=== PATIENT | male | born 1955 | race Caucasian/White ===

== ENCOUNTER 2018-03-29 08:54 | Inpatient (IN) | payer MEDICARE ==
[~2018-03-29] VITALS: Ht 185.4 cm; Wt 118.8 kg
[2018-03-29] MEDS ORDERED: normal saline 1000ML IV soln IVB ONE (09:30)
[2018-03-29 09:55] LABS: ALANINE AMINOTRANSFERASE 16 U/L (12-78); ALBUMIN 3.1 G/DL (3.4-5.0); ALBUMIN/GLOBULIN RATIO 0.7 (1.1-1.5); ALKALINE PHOSPHATASE 331 IU/L (46-116); ANION GAP 21 (8-16); ASPARTATE AMINO TRANSFERASE 21 U/L (10-37); BILIRUBIN,TOTAL 1.4 MG/DL (0.1-1.0); BLOOD UREA NITROGEN 75 MG/DL (7-18); BUN/CREATININE RATIO 6.3 (5.4-32.0); CALCIUM 8.7 MG/DL (8.5-10.1); CHLORIDE 99 MMOL/L (99-107); CREATININE 11.88 MG/DL (0.60-1.10); GLUCOSE 111 MG/DL (70-104); SODIUM 140 MMOL/L (135-145); TOTAL CARBON DIOXIDE 20.5 MMOL/L (24-32); TOTAL PROTEIN 7.6 G/DL (6.4-8.2); eGFR 4 ML/MIN
[2018-03-29 09:57] LABS: BASOPHILS % (AUTO) 0.5 % (0-1); EOSINOPHILS # (AUTO) 0.2 X10'3 (0-0.9); EOSINOPHILS % (AUTO) 2.5 % (0-6); HEMATOCRIT 33.6 % (42.0-52.0); HEMOGLOBIN 11.2 g/dl (14.0-17.9); LYMPHOCYTES # (AUTO) 0.9 X10'3 (1.1-4.8); LYMPHOCYTES % (AUTO) 10.5 % (21-51); MEAN CORPUSCULAR HGB CONC 33.3 % (33.0-36.5); MEAN CORPUSCULAR VOLUME 81.1 FL (78-98); MEAN PLATELET VOLUME 7.1 FL (7.4-10.4); MONOCYTES # (AUTO) 1.1 X10'3 (0-0.9); MONOCYTES % (AUTO) 12.9 % (2-12); NEUTROPHILS # (AUTO) 6.2 X10'3 (1.8-7.7); NEUTROPHILS % (AUTO) 73.6 % (42-75); PLATELET COUNT 223 X10'3 (140-440); RED BLOOD COUNT 4.14 X10'6 (4.70-6.10); RED CELL DISTRIBUTION WIDTH 15.4 % (11.5-14.5); WHITE BLOOD COUNT 8.4 X10'3 (4.5-11.0)
[2018-03-29] MEDS: diatr meglu/diatrizoate 30ml oral sol.-(3 dose) bottle PO SCH ×3 (10:01→12:07)
[2018-03-29 10:03] LABS: AMYLASE 61 U/L (25-115); LIPASE 106 U/L (73-393)
[2018-03-29 10:07] LABS: INR 1.3 INR; PARTIAL THROMBOPLASTIN TIME 30 SECONDS (22-32)
[2018-03-29] MEDS ORDERED: iohexol 300mg/ml 100ml inj. ONE (10:19)
[2018-03-29] MEDS ORDERED: aspirin 81mg tab.chew PO ONE (10:25)
[2018-03-29] MEDS ORDERED: ondansetron/PF 4mg/2ml inj IV PRN (16:20)
[2018-03-29] MEDS ORDERED: morphine 4 MG/ML inj SYRINge IV PRN (16:20)
[2018-03-29] MEDS ORDERED: acetaminophen 325mg tablet PO PRN ×2 (16:20)
[2018-03-29] MEDS ORDERED: potassium Cl 20 mEq SR tablet PO PRN ×2 (16:20)
[2018-03-29] MEDS: normal saline 1000ml 1,000 ML IV SCH (16:47)
[2018-03-29] MEDS: K, MAG and/or Phos replacement - Verify level? MC SCH (16:47)
[2018-03-29] MEDS: pantoprazole 40 MG vial IV SCH (17:40)
[2018-03-29 19:13] VITALS: BP 162/93
[2018-03-29 20:00] VITALS: BP 155/98
[2018-03-29] MEDS: docusate sod 100mg capsule PO SCH (20:00)
[2018-03-29 21:00] VITALS: BP 143/76
[2018-03-29] MEDS: sennosides/docusate sodium tablet PO SCH (21:00)
[2018-03-29] MEDS: sodium bicarbonate (8.4%) inj. 150 MEQ in dextrose 5%-water 1,000 ML IV SCH (21:48)
[2018-03-29] MEDS: heparin, porcine 5000 units/ml vial SQ SCH (21:59)
[2018-03-29 22:00] VITALS: BP 145/89
[2018-03-29 23:00] VITALS: BP 139/76
[2018-03-30] VITALS (19 sets, daily range): BP systolic 113–164; BP diastolic 68–92
[2018-03-30] MEDS: normal saline 1000ml 1,000 ML IV SCH ×2 (05:40→08:47)
[2018-03-30 05:57] LABS: BASOPHILS % (AUTO) 0.5 % (0-1); EOSINOPHILS # (AUTO) 0.3 X10'3 (0-0.9); EOSINOPHILS % (AUTO) 3.9 % (0-6); HEMATOCRIT 29.8 % (42.0-52.0); HEMOGLOBIN 10.1 g/dl (14.0-17.9); LYMPHOCYTES # (AUTO) 0.8 X10'3 (1.1-4.8); LYMPHOCYTES % (AUTO) 12.6 % (21-51); MEAN CORPUSCULAR HEMOGLOBIN 26.9 PG (27.0-31.0); MEAN CORPUSCULAR HGB CONC 33.7 % (33.0-36.5); MEAN CORPUSCULAR VOLUME 79.8 FL (78-98); MONOCYTES % (AUTO) 14.5 % (2-12); NEUTROPHILS # (AUTO) 4.6 X10'3 (1.8-7.7); NEUTROPHILS % (AUTO) 68.5 % (42-75); PLATELET COUNT 205 X10'3 (140-440); RED BLOOD COUNT 3.74 X10'6 (4.70-6.10); RED CELL DISTRIBUTION WIDTH 15.2 % (11.5-14.5); WHITE BLOOD COUNT 6.7 X10'3 (4.5-11.0)
[2018-03-30 06:09] LABS: INR 1.3 INR; PARTIAL THROMBOPLASTIN TIME 32 SECONDS (22-32); PROTHROMBIN TIME 13.4 SECONDS (9.0-12.0)
[2018-03-30 06:34] LABS: ALANINE AMINOTRANSFERASE 17 U/L (12-78); ALBUMIN 2.5 G/DL (3.4-5.0); ALBUMIN/GLOBULIN RATIO 0.6 (1.1-1.5); ALKALINE PHOSPHATASE 245 IU/L (46-116); ANION GAP 10 (8-16); ASPARTATE AMINO TRANSFERASE 20 U/L (10-37); BILIRUBIN,TOTAL 0.6 MG/DL (0.1-1.0); BLOOD UREA NITROGEN 31 MG/DL (7-18); BUN/CREATININE RATIO 13.1 (5.4-32.0); CALCIUM 8.3 MG/DL (8.5-10.1); CHLORIDE 107 MMOL/L (99-107); CREATININE 2.36 MG/DL (0.60-1.10); GLUCOSE 104 MG/DL (70-104); MAGNESIUM 2.4 MG/DL (1.5-2.4); PHOSPHORUS 2.4 MG/DL (2.3-4.5); POTASSIUM 3.8 MMOL/L (3.5-5.1); SODIUM 144 MMOL/L (135-145); TOTAL CARBON DIOXIDE 26.7 MMOL/L (24-32); TOTAL PROTEIN 6.4 G/DL (6.4-8.2); eGFR 28 ML/MIN
[2018-03-30] MEDS: K, MAG and/or Phos replacement - Verify level? MC SCH (06:38)
[2018-03-30] MEDS: pantoprazole 40 MG vial IV SCH (07:40)
[2018-03-30] MEDS: sodium bicarbonate (8.4%) inj. 150 MEQ in dextrose 5%-water 1,000 ML IV SCH (07:41)
[2018-03-30] MEDS: docusate sod 100mg capsule PO SCH ×2 (07:41→20:00)
[2018-03-30] MEDS: heparin, porcine 5000 units/ml vial SQ SCH ×2 (07:41→20:11)
[2018-03-30] MEDS ORDERED: NORepinephrine 8mg/ 250ml NS 250 ML IV SCH (08:30)
[2018-03-30] MEDS ORDERED: NO HOME MEDS (10:32)
[2018-03-30] MEDS: sennosides/docusate sodium tablet PO SCH (20:10)
[2018-03-31] MEDS ORDERED: lactulose 20gm/30ml cup PO PRN (16:20)
== END 2018-03-30 21:50 | disposition short-term general hospital (02) | DRG 683 ==
LOC: ER 08:54 → ED HOLD 16:20 → CICU 2S 17:30 → ICU 2S 19:10
DX: N17.9 Acute kidney failure, unspecified (principal); C79.51 Secondary malignant neoplasm of bone; C80.0 Disseminated malignant neoplasm, unspecified; I50.9 Heart failure, unspecified; I71.2 Thoracic aortic aneurysm, without rupture; N32.0 Bladder-neck obstruction; R59.1 Generalized enlarged lymph nodes; R60.1 Generalized edema; N40.0 Benign prostatic hyperplasia without lower urinary tract symptoms; D64.9 Anemia, unspecified; R06.09 Other forms of dyspnea; R59.0 Localized enlarged lymph nodes; R74.8 Abnormal levels of other serum enzymes; R79.89 Other specified abnormal findings of blood chemistry; Z79.899 Other long term (current) drug therapy; Z98.52 Vasectomy status
CPT/HCPCS: 36415; 71250; 74176; 80053; 82150; 82570; 83690; 83735; 83880; 83935; 84100; 84300; 84484; 85025; 85610; 85730; 87070; 93005; 97110; 97116; 97161; A4315; A6213; C9113; J1644; J7030; Q9963; Q9967

== ENCOUNTER 2018-10-17 01:52 | Emergency (ER) | payer MEDICARE ==
[~2018-10-17] VITALS: Ht 185.4 cm; Wt 122.7 kg
[~2018-10-17 01:52] MED LIST: NO HOME MEDS
[2018-10-17 01:56] VITALS: BP 171/97
[2018-10-17] MEDS ORDERED: LIDOcaine 2% 10ml TOPICAL JELLY (Urojet) MM ONE (02:05)
== END 2018-10-17 06:07 | disposition home or self-care (01) ==
LOC: ER 01:53
DX: R33.9 Retention of urine, unspecified (principal); R10.9 Unspecified abdominal pain
CPT/HCPCS: 51702; 99284

== ENCOUNTER 2018-11-01 00:55 | Emergency (ER) | payer MEDICARE ==
[~2018-11-01] VITALS: Ht 185.4 cm; Wt 122.7 kg
[2018-11-01 00:58] VITALS: BP 99/72
[2018-11-01] MEDS ORDERED: LIDOcaine 2% 10ml TOPICAL JELLY (Urojet) MM STA (01:02)
[2018-11-01 01:40] LABS: CLARITY,URINE CLOUDY (Clear); COLOR,URINE YELLOW (Yellow); GLUCOSE, URINE NEGATIVE (Neg); KETONES,URINE NEGATIVE (Neg); LEUKOCYTE ESTERASE ,URINE LARGE (Neg); NITRITES, URINE POSITIVE (Neg); OCCULT BLOOD,URINE LARGE (Neg); PROTEIN,URINE 30 mg/dl (Neg); UA COLLECTION TYPE FOLEY CATH; UROBILINOGEN,URINE 0.2 E.U/dL (0.2-1.0)
[2018-11-01] MEDS ORDERED: SULF1TAB49 PO (01:42)
[2018-11-01 02:39] LABS: WBC,URINE 50-100 /HPF (0-4)
[2018-11-01 02:40] LABS: AMORPHOUS PHOSPHATES 2+; BACTERIA,URINE 3+ /HPF (Neg); MUCUS STRANDS MANY /LPF (Neg); RBC,URINE 50-100 /HPF (0-2); SQUAMOUS EPITHELIAL CELL,UR NONE SEEN /LPF (FEW); TRIPLE PHOSPHATE CRYST 1+ /HPF (NEGATIVE)
== END 2018-11-01 02:05 | disposition home or self-care (01) ==
LOC: ER 00:56
DX: R33.9 Retention of urine, unspecified (principal); C61 Malignant neoplasm of prostate; N39.0 Urinary tract infection, site not specified; N40.0 Benign prostatic hyperplasia without lower urinary tract symptoms; Z98.890 Other specified postprocedural states; Z90.89 Acquired absence of other organs
CPT/HCPCS: 51702; 81001; 87077; 87088; 87186; 99284